=== PATIENT | female | born 1945 | race Caucasian/White ===

== ENCOUNTER 2017-01-10 07:18 | Day surgery (SDC) | payer OTHER ==
[2017-01-09 15:04] VITALS: BMI 26.7
[2017-01-10] MEDS ORDERED: DIPHENHYDRAMINE 25 MG in SODIUM CHLORIDE 50 ML IVPB ONE (08:00)
[2017-01-10] MEDS ORDERED: DEXAMETHASONE INJECTION 20 MG in SODIUM CHLORIDE 50 ML IVPB ONE (08:00)
[2017-01-10] MEDS ORDERED: SODIUM CHLORIDE IVPB ONE (08:30)
[2017-01-10] MEDS ORDERED: DESMOPRESSIN ACETATE IVPB ONE (08:30)
[2017-01-10] MEDS ORDERED: PROPOFOL 20 ML ONE ×2 (11:25)
[2017-01-10] MEDS ORDERED: LIDOCAINE HCL/PF 2% SDV 5ML VIAL ONE (11:25)
[2017-01-10 12:05] VITALS: TEMP 98.1
[2017-01-10 12:49] VITALS: BP 107/50; PULSE 83
--- NOTE | 2017-01-11 13:26 | PATH ---
Surgical Pathology Report Patient Name: RADHA GRAMAJO [facility]. Rec. #: [id number] /Age/Gender: 1945 (Age: 71) / F Account: [id number] Location: U-ENDOSCOPY Taken: 01/10/2017 Received: 01/10/2017 Reported: 01/11/2017 Physicians: Lane Kat M.D. Specimen(s) Received A: POLYP CECUM B: POLYP PROXIMAL TRANSVERSE COLON Clinical History History of colon polyp, family history of colon cancer Diverticulosis, redundant sigmoid, colon polyps Final Diagnosis A. COLON, CECUM, POLYP, POLYPECTOMY: TUBULAR ADENOMA. B. COLON, PROXIMAL TRANSVERSE, POLYP, POLYPECTOMY: SESSILE SERRATED ADENOMA. Electronically Signed Negrito Salazar M.D. Gross Description A. Received in formalin, labeled "polyp cecum" is a conde, irregular portion of soft tissue measuring 0.6 cm in greatest dimension. The specimen is submitted in toto in one cassette. B. Received in formalin, labeled "polyp proximal transverse colon" is a conde, polypoid portion of soft tissue measuring 0.8 cm in greatest dimension. The specimen is submitted in toto in one cassette. 01/10/2017 saudi01/10/2017
== END 2017-01-10 13:12 | disposition home or self-care (01) ==
LOC: JASU-ENDO 07:18
PROVIDERS: ATTEND Internal Medicine Gastroenterology
PROC: 0DBL8ZX Excision of Transverse Colon, Via Natural or Artificial Opening Endoscopic, Diagnostic (ICD-10-PCS; 2017-01-10)
PROC: 0DBH8ZX Excision of Cecum, Via Natural or Artificial Opening Endoscopic, Diagnostic (ICD-10-PCS; principal; 2017-01-10 11:00)
DX: Z86.010 Personal history of colon polyps (principal); Z80.0 Family history of malignant neoplasm of digestive organs; D12.0 Benign neoplasm of cecum; D12.3 Benign neoplasm of transverse colon; K57.30 Diverticulosis of large intestine without perforation or abscess without bleeding
CPT/HCPCS: 88305-TC; J2597

== ENCOUNTER 2020-10-12 05:27 | Day surgery (SDC) | payer OTHER ==
[2020-10-09 16:35] VITALS: BMI 25.1
[2020-10-12] MEDS ORDERED: KCL IV ONE (07:00)
[2020-10-12] MEDS ORDERED: D5 NS IV ONE (07:00)
[2020-10-12] MEDS ORDERED: ONDANSETRON 4 MG/2 ML VIAL IVPB ONE (07:30)
[2020-10-12] MEDS ORDERED: ONDANSETRON INJECTION 8 MG in SODIUM CHLORIDE 50 ML IVPB ONE (07:30)
[2020-10-12] MEDS ORDERED: DESMOPRESSIN ACETATE IVPB ONE (08:00)
[2020-10-12] MEDS ORDERED: SODIUM CHLORIDE IVPB ONE (08:00)
[2020-10-12 11:58] VITALS: TEMP 97.7
[2020-10-12 12:43] VITALS: BP 112/88; PULSE 80
[2020-10-12] MEDS ORDERED: ONDANSETRON 4 MG/2 ML VIAL IVPB PRN (12:58)
== END 2020-10-12 13:21 | disposition home or self-care (01) ==
LOC: JASU-ENDO 05:27
PROVIDERS: ATTEND Internal Medicine Gastroenterology
PROC: 0DBH8ZX Excision of Cecum, Via Natural or Artificial Opening Endoscopic, Diagnostic (ICD-10-PCS; principal; 2020-10-12 11:22)
DX: D12.0 Benign neoplasm of cecum (principal); K57.30 Diverticulosis of large intestine without perforation or abscess without bleeding; K63.89 Other specified diseases of intestine; Z86.010 Personal history of colon polyps
CPT/HCPCS: 88305-TC; J2597

== ENCOUNTER 2020-11-09 13:04 | Observation (INO) | payer OTHER ==
[2020-11-09 13:17] VITALS: BMI 24.7
[2020-11-09 16:30] LABS: BASO % 0.6 % (0-2.0); EOS % 3.7 % (0-4.5); HEMATOCRIT 32.2 % (32.4-45.2); HEMOGLOBIN 10.9 GM/dL (10.7-15.3); LYMPH % 31.1 % (8-40); MCH 34.5 pg (25.7-33.7); MCHC 33.7 g/dl (32.0-36.0); MEAN CELL VOLUME 102.2 fl (80-96); MEAN PLT VOLUME 8.7 fl (7.5-11.1); MONO % 12.6 % (3.8-10.2); PLATELET COUNT 202 K/MM3 (134-434); RBC 3.16 M/mm3 (3.60-5.2); WHITE BLOOD COUNT 6.6 K/mm3 (4.0-10.0)
[2020-11-09 16:36] LABS: INR 0.97 (0.83-1.09); PROTHROMBIN TIME (PATIENT) 11.7 SEC (9.7-13.0)
[2020-11-09 16:50] LABS: CHLORIDE 103 mmol/L (98-107); SODIUM 140 mmol/L (136-145)
[2020-11-09 16:51] LABS: ALBUMIN 3.9 g/dl (3.4-5.0); ANION GAP 6 MMOL/L (8-16); BLOOD UREA NITROGEN 9.5 mg/dL (7-18); CO2 31 mmol/L (21-32); LIPASE 182 U/L (73-393)
[2020-11-09 16:53] LABS: GLUCOSE,RANDOM 86 mg/dL (74-106)
[2020-11-09 16:55] LABS: CREATININE 0.6 mg/dL (0.55-1.3); SGOT/AST 15 U/L (15-37); SGPT/ALT 12 U/L (13-61)
[2020-11-09 16:56] LABS: BILIRUBIN,TOTAL 0.4 mg/dL (0.2-1); TOT PROT 7.2 g/dl (6.4-8.2)
[2020-11-09 16:58] LABS: ALK PHOS 71 U/L (45-117)
[2020-11-09] MEDS ORDERED: ACETAMINOPHEN 1000 MG/100 ML VIAL (NON FORMULARY) IVPB ONE (18:29)
[2020-11-09] MEDS ORDERED: FAMOTIDINE 20 MG/50 ML IVPB 20 MG/50 ML MG IVPB ONE ×2 (18:29→19:29)
[2020-11-09] MEDS ORDERED: SUCRALFATE 1 GM/10 ML UNIT DOSE CUPS PO ONE (18:29)
[2020-11-09] MEDS ORDERED: SUCRALFATE 1 GM TABLET (FP) ONE (19:29)
[2020-11-09] MEDS ORDERED: ACETAMINOPHEN INJECTION 100 ML IVPB ONE (19:29)
[2020-11-09] MEDS ORDERED: MAG HYDROX/AL HYDROX/SIMETH 30 ML UNIT-DOSE CUP PO PRN (20:55)
[2020-11-09 23:09] LABS: PH,URINE 6.5 (5.0-8.0); URINE APPEARANCE CLEAR; URINE BILIRUBIN NEGATIVE (NEGATIVE); URINE COLOR YELLOW; URINE GLUCOSE (UA) NEGATIVE (NEGATIVE); URINE KETONE NEGATIVE (NEGATIVE); URINE LEUK ESTERASE NEGATIVE (NEGATIVE); URINE NITRITE NEGATIVE (NEGATIVE); URINE PROTEIN NEGATIVE (NEGATIVE); URINE UROBILINOGEN 0.2 mg/dL (0.2-1.0)
[2020-11-10 06:53] LABS: HEMATOCRIT 29.5 % (32.4-45.2); HEMOGLOBIN 9.8 GM/dL (10.7-15.3); MCH 34.4 pg (25.7-33.7); MCHC 33.3 g/dl (32.0-36.0); MEAN CELL VOLUME 103.3 fl (80-96); MEAN PLT VOLUME 8.6 fl (7.5-11.1); PLATELET COUNT 172 K/MM3 (134-434); RBC 2.85 M/mm3 (3.60-5.2); RDW 13.8 % (11.6-15.6); WHITE BLOOD COUNT 3.9 K/mm3 (4.0-10.0)
[2020-11-10 07:21] LABS: ALBUMIN 3.2 g/dl (3.4-5.0); CALCIUM 8.1 mg/dL (8.5-10.1)
[2020-11-10 07:23] LABS: BLOOD UREA NITROGEN 11.6 mg/dL (7-18); MAGNESIUM 2.2 mg/dL (1.8-2.4)
[2020-11-10 07:25] LABS: CREATININE 0.5 mg/dL (0.55-1.3); PHOSPHOROUS 3.7 mg/dL (2.5-4.9)
[2020-11-10 07:26] LABS: BILIRUBIN,TOTAL 0.6 mg/dL (0.2-1)
[2020-11-10] MEDS ORDERED: LEVOTHYROXINE NA 75 MCG TABLET (FP) PO SCH (10:00)
[2020-11-10] MEDS ORDERED: CHOLECALCIFEROL (VIT D3) 1,000 UNIT (25 MCG) TABLET PO SCH (10:00)
[2020-11-10] MEDS ORDERED: CITALOPRAM HYDROBROMIDE 20 MG TABLET PO SCH (10:00)
[2020-11-10] MEDS ORDERED: metoPROLOL SUCCINATE 25 MG TAB.SR.24H (FP) PO SCH (10:00)
[2020-11-10] MEDS ORDERED: FAMOTIDINE 10 MG TABLET PO SCH (10:00)
[2020-11-10] MEDS ORDERED: FOLIC ACID 1 MG TABLET (FP) PO SCH (10:00)
[2020-11-10 14:15] VITALS: BP 123/71; PULSE 61; TEMP 97.8
[2020-11-10] MEDS ORDERED: PANTOPRAZOLE 40 MG TABLET PO SCH (16:30)
[2020-11-10] MEDS ORDERED: SIMETHICONE 80 MG TAB.CHEW (FP) PO SCH (18:00)
[2020-11-10] MEDS ORDERED: ATORVASTATIN CA 10 MG TABLET (FP) PO SCH (22:00)
== END 2020-11-10 19:30 | disposition home or self-care (01) ==
LOC: JER 13:04 → JERBED 18:46 → INTOOBSV 18:46 → J4S 11-10 02:11
PROVIDERS: ADMIT Hospitalist; ATTEND Nurse Practitioner Acute Care
PROC: 3E033GC Introduction of Other Therapeutic Substance into Peripheral Vein, Percutaneous Approach (ICD-10-PCS; principal; 2020-11-09)
PROC: 3E033NZ Introduction of Analgesics, Hypnotics, Sedatives into Peripheral Vein, Percutaneous Approach (ICD-10-PCS; 2020-11-09)
DX: R55 Syncope and collapse (principal); I42.9 Cardiomyopathy, unspecified; D68.0 Von Willebrand disease; D53.9 Nutritional anemia, unspecified; U07.1 COVID-19; E78.5 Hyperlipidemia, unspecified; R10.13 Epigastric pain; W18.30XA Fall on same level, unspecified, initial encounter; C50.919 Malignant neoplasm of unspecified site of unspecified female breast; Y93.89 Activity, other specified; Y92.89 Other specified places as the place of occurrence of the external cause; I34.1 Nonrheumatic mitral (valve) prolapse; E53.8 Deficiency of other specified B group vitamins
CPT/HCPCS: 36415; 70450-TC; 71045-TC-FY; 72125-TC; 72170-TC-FY; 73030-TC-LT-FY; 73070-TC-LT-FY; 73502-TC-LT-FY; 80053; 81003; 82550; 82607; 82746; 83690; 83735; 84100; 84443; 84484; 85025; 85027; 85610; 87086; 93005; 93010; 93306-TC; 93880-TC; 96365; 96375; 97116-GP; 97161-GP; 99285-25; C9803; G0378; J0131; U0003; U0005

== ENCOUNTER 2020-12-14 05:01 | Day surgery (SDC) | payer OTHER ==
[2020-12-11 14:34] VITALS: BMI 25.4
[2020-12-14] MEDS ORDERED: ONDANSETRON 4 MG/2 ML VIAL IVPB ONE (07:30)
[2020-12-14] MEDS ORDERED: ONDANSETRON 4 MG/2 ML VIAL ONE ×2 (07:42)
[2020-12-14] MEDS ORDERED: DESMOPRESSIN ACETATE IVPB ONE (08:00)
[2020-12-14] MEDS ORDERED: SODIUM CHLORIDE IVPB ONE (08:00)
[2020-12-14] MEDS ORDERED: D5-1/2NS+20 MEQ KCL - 20 MEQ/1,000 ML INFUS.BAG IV SCH (09:00)
[2020-12-14 12:37] VITALS: TEMP 98
[2020-12-14 13:44] VITALS: BP 133/67; PULSE 73
== END 2020-12-14 15:20 | disposition home or self-care (01) ==
LOC: JASU-ENDO 05:01
PROVIDERS: ATTEND Internal Medicine Gastroenterology
PROC: 0DB68ZX Excision of Stomach, Via Natural or Artificial Opening Endoscopic, Diagnostic (ICD-10-PCS; principal; 2020-12-14 12:17)
DX: K31.7 Polyp of stomach and duodenum (principal); K29.50 Unspecified chronic gastritis without bleeding
CPT/HCPCS: 88305-TC; 88342-TC; J2597

== ENCOUNTER 2022-02-03 15:16 | Emergency (ER) | payer OTHER ==
[2022-02-03 15:28] VITALS: BP 110/67; PULSE 61; RESP 19; TEMP 97.9; BMI 24.7
[2022-02-03 17:58] LABS: BASO % 0.8 % (0-2.0); HEMATOCRIT 33.1 % (32.4-45.2); MCHC 33.4 g/dl (32.0-36.0); MEAN CELL VOLUME 101.8 fl (80-96); MEAN PLT VOLUME 8.1 fl (7.5-11.1); MONO % 12.7 % (3.8-10.2); NEUT % 47.5 % (42.8-82.8); PLATELET COUNT 202 10^3/uL (134-434); RBC 3.25 M/mm3 (3.60-5.2); RDW 14.3 % (11.6-15.6); WHITE BLOOD COUNT 5.8 K/mm3 (4.0-10.0)
[2022-02-03 18:05] LABS: INR 0.97 (0.83-1.09); PROTHROMBIN TIME (PATIENT) 11.2 SEC (9.7-13.0)
[2022-02-03 18:08] LABS: ACTIVATED PTT 41.1 SECONDS (25.2-36.5)
[2022-02-03 18:19] LABS: ALBUMIN 3.7 g/dl (3.4-5.0); CALCIUM 8.9 mg/dL (8.5-10.1)
[2022-02-03 18:20] LABS: BLOOD UREA NITROGEN 11.5 mg/dL (7-18)
[2022-02-03 18:24] LABS: BILIRUBIN,TOTAL 0.2 mg/dL (0.2-1); CREATININE 0.6 mg/dL (0.55-1.3); TOT PROT 6.8 g/dl (6.4-8.2)
== END 2022-02-03 20:36 ==
LOC: JER 15:16
DX: R07.9 Chest pain, unspecified (principal)
CPT/HCPCS: 0241U-QW; 36415; 71046-TC-FY; 80053; 84484; 85025; 85610; 85730; 93005; 93010; 99285-25

== ENCOUNTER 2023-02-21 08:22 | Day surgery (SDC) | payer OTHER ==
[2023-02-21] MEDS ORDERED: DEXTROSE 5%-0.45% SALINE 1,000 ML IV ONE (09:00)
[2023-02-21] MEDS ORDERED: ONDANSETRON INJECTION 8 MG in SODIUM CHLORIDE 50 ML IVPB ONE (09:30)
[2023-02-21] MEDS ORDERED: SODIUM CHLORIDE IVPB ONE (10:00)
[2023-02-21] MEDS ORDERED: DESMOPRESSIN ACETATE IVPB ONE (10:00)
[2023-02-21 16:01] VITALS: BP 143/68; PULSE 66; RESP 20; TEMP 97.8
== END 2023-02-21 12:15 | disposition home or self-care (01) ==
LOC: J7W 08:22 → JONCNONCHE 08:22
PROVIDERS: ATTEND Internal Medicine Hematology & Oncology
PROC: 3E033GC Introduction of Other Therapeutic Substance into Peripheral Vein, Percutaneous Approach (ICD-10-PCS; principal; 2023-02-21)
DX: D68.00 Von Willebrand disease, unspecified (principal)
CPT/HCPCS: 96365; 96367; J2405; J2597

== ENCOUNTER → 2024-11-06 | Day surgery (SDC) | payer OTHER | END | disposition home or self-care (01) | LOC: JRADUS-SUR 10:00 | PROVIDERS: ATTEND Specialist | PROC: 0H9T3ZX Drainage of Right Breast, Percutaneous Approach, Diagnostic (ICD-10-PCS; principal; 2024-11-06) | DX: N60.31 Fibrosclerosis of right breast (principal) | CPT/HCPCS: 19083; 76942-TC; 77065-TC; 87899; 88305-TC; A4648 ==

== ENCOUNTER 2024-11-14 09:37 | Day surgery (SDC) | payer OTHER ==
[2024-11-14] MEDS: ONDANSETRON INJECTION 8 MG in SODIUM CHLORIDE 100 ML IVPUSH ONE (11:00)
[2024-11-14 12:47] VITALS: BP 140/50; PULSE 70; RESP 16; TEMP 97.3
== END 2024-11-14 13:46 | disposition home or self-care (01) ==
LOC: FMAMMOTONE 09:37 → FM/S 11:06 → FMAMMOTONE 13:46
PROVIDERS: ATTEND Specialist
PROC: 3E033GC Introduction of Other Therapeutic Substance into Peripheral Vein, Percutaneous Approach (ICD-10-PCS; principal; 2024-11-14)
DX: D68.00 Von Willebrand disease, unspecified (principal)
CPT/HCPCS: 96365; J2597

== ENCOUNTER 2024-12-04 09:35 | Day surgery (SDC) | payer OTHER ==
[2024-12-04] MEDS: ONDANSETRON INJECTION 8 MG in SODIUM CHLORIDE 100 ML IVPUSH ONE (10:17)
[2024-12-04 14:51] VITALS: BP 112/61; PULSE 69; RESP 17; TEMP 97.7
== END 2024-12-04 13:05 | disposition home or self-care (01) ==
LOC: FINFUSION 09:35 → FM/S 09:36 → FINFUSION 13:05
PROVIDERS: ATTEND Internal Medicine Hematology & Oncology
PROC: 3E033GC Introduction of Other Therapeutic Substance into Peripheral Vein, Percutaneous Approach (ICD-10-PCS; principal; 2024-12-04)
DX: D68.00 Von Willebrand disease, unspecified (principal); C50.912 Malignant neoplasm of unspecified site of left female breast; D50.0 Iron deficiency anemia secondary to blood loss (chronic)
CPT/HCPCS: 96365; J2597